=== PATIENT | male | born 2005 | race Caucasian/White ===

== ENCOUNTER 2024-08-05 14:20 | Emergency (ER) | payer OTHER, SELFPAY ==
[2024-08-05 15:19] VITALS: BP 140/77; PULSE 74; RESP 15; TEMP 36.6; O2SAT 100
--- NOTE | 2024-08-05 16:49 | ED_ITS ---
HPI - Abdominal Pain General Chief Complaint: Abdominal Pain <BILL Arana Last Filed: 08/05/24 16:55> Stated Complaint: abdominal pain <BILL Arana Last Filed: 08/05/24 16:55> Time Seen by Provider: 08/05/24 16:49 <BILL Arana Last Filed: 08/05/24 16:55> Focused HPI: Patient is a 19-year-old male who presents the ED with report of upper abdominal pain. Patient reports he developed pain throughout his upper abdomen after eating yesterday. States pain slowly resolved on its own. He ate breakfast this morning without issue. He then had lunch around 1:00 p.m. and developed pain in his upper abdomen immediately afterwards. States he was only able to take 3 bites of his sandwich before the pain began. Pain was much more severe than yesterday which prompted his presentation. Pain is still present currently, but is more mild. He has not taken anything for the pain. He did report episode of diarrhea yesterday which was near black in color. Denies BRBPR. Denies N/V/D, constipation, fever. Denies ETOH use. Denies frequent NSAID use. GENERAL: Well-appearing, well-nourished, and in no acute distress. HEAD: Normocephalic, atraumatic. CHEST: Clear to auscultation. ?No respiratory distress. HEART: Regular rate and rhythm.? ABD: No significant tenderness in abdomen. Normoactive BS. NEURO: ?Alert and oriented x3. Patient screened in triage and initial orders placed.? ?Additional care and disposition to be based upon?diagnostic testing and treatment. <BILL Arana Last Filed: 08/05/24 16:55> Source: patient <BILL Arana Last Filed: 08/05/24 16:55> Mode of arrival: ambulatory <BILL Arana Last Filed: 08/05/24 16:55> Limitations: no limitations <BILL Arana Last Filed: 08/05/24 16:55> History of Present Illness HPI narrative: Patient 19-year-old gentleman presents emergency department chief complaint of epigastric discomfort. The patient has noticed that he has had a burning like sensation that is happened particularly after he eats. The patient states that today was worse he decided to come to the emergency department patient denies ETOH use denies caffeine use <Cy Eduardo MD - Last Filed: 08/05/24 18:01> Related Data Allergies/Adverse Reactions: Allergies Allergy/AdvReac Type Severity Reaction Status Date / Time No Known Allergies Allergy Verified 08/05/24 15:21 <Hyacinth Burns PA-C - Last Filed: 08/05/24 16:55> Review of Systems 2 Review of Systems: A 10 system review of systems was completed on the patient and is negative except for what is stated in the HPI. Nursing and ancillary documentation was reviewed. <Cy Eduardo MD - Last Filed: 08/05/24 18:01> Exam 2 Narrative: GENERAL: Well-appearing, well-nourished, and in no acute distress. HEAD: Normocephalic, atraumatic. EYES: PERRLA and EOMI. ENT: Nares clear, no rhinorrhea or epistaxis. Mucous membranes moist. NECK: Supple. CHEST: Clear to auscultation. No respiratory distress. HEART: Regular rate and rhythm. No murmur heard. Normal peripheral pulses. ABDOMEN: Soft, nontender, nondistended, normal active bowel sounds. EXTREMITIES: Normal range of motion. No edema. SKIN: Warm, dry, no rash. NEURO: No focal deficits. Alert and oriented x3. PSYCH: Normal mood and affect. <Cy Eduardo MD - Last Filed: 08/05/24 18:01> Course Vital Signs Vital signs: Vital Signs Temperature 36.6 C 08/05/24 15:19 Pulse Rate 74 08/05/24 15:19 Respiratory Rate 15 08/05/24 15:19 Blood Pressure 140/77 08/05/24 15:19 Pulse Oximetry 100 08/05/24 15:19 Oxygen Delivery Room Air 08/05/24 15:19 Temperature 36.6 C 08/05/24 15:19 Pulse Rate 74 08/05/24 15:19 Respiratory Rate 15 08/05/24 15:19 Blood Pressure 140/77 08/05/24 15:19 Pulse Oximetry 100 08/05/24 15:19 Oxygen Delivery Room Air 08/05/24 15:19 <Hyacinth Burns PA-C - Last Filed: 08/05/24 16:55> Vital Signs Temperature 36.6 C 08/05/24 15:19 Pulse Rate 74 08/05/24 15:19 Respiratory Rate 15 08/05/24 15:19 Blood Pressure 140/77 08/05/24 15:19 Pulse Oximetry 100 08/05/24 15:19 Oxygen Delivery Room Air 08/05/24 15:19 Temperature 36.6 C 08/05/24 15:19 Pulse Rate 74 08/05/24 15:19 Respiratory Rate 15 08/05/24 15:19 Blood Pressure 140/77 08/05/24 15:19 Pulse Oximetry 100 08/05/24 15:19 Oxygen Delivery Room Air 08/05/24 15:19 <Cy Eduardo MD - Last Filed: 08/05/24 18:01> MDM - Abdominal Pain MDM Narrative Medical decision making narrative: MSE by EDGARDO in triage. Patient declined CT abd/pelvis. <Hyacinth Burns PA-C - Last Filed: 08/05/24 16:55> MSE by EDGARDO in triage. Patient declined CT abd/pelvis. Laboratory studies were obtained on the patient showed normal CBC normal CMP patient is currently asymptomatic. The patient was started on Protonix patient should follow-up with his primary care provider <Cy Eduardo MD - Last Filed: 08/05/24 18:01> Lab Data Result diagrams: 08/05/24 17:11 08/05/24 17:11 <Hyacinth Burns PA-C - Last Filed: 08/05/24 16:55> Labs: Lab Results 08/05/24 Range/Units 17:11 WBC 11.5 H (4.5-10.0) K/mm3 RBC 5.29 (4.6-6.20) M/mm3 Hgb 16.1 (14.0-18.0) g/dL Hct 46.3 (42.0-52.0) % MCV 87.5 (80-100) fl MCH 30.4 (26-34) pg MCHC 34.8 (32-36) g/dl RDW 12.4 (11.5-14.5) % Plt Count 228 (150-375) k/mm3 MPV 9.7 (7.4-10.4) fl Immature Gran % (Auto) 0.3 (0-0.5) % Neut % (Auto) 73.9 H (45.5-73.1) % Lymph % (Auto) 14.5 L (18.3-44.2) % Polk % (Auto) 8.5 (2.6-8.5) % Eos % (Auto) 2.3 (0-4.4) % Baso % (Auto) 0.5 (0.2-1.2) % Lymph # (Auto) 1.67 (0.9-3.2) K/mm3 Polk # (Auto) 1.0 H (0.1-0.6) K/mm3 Eos # (Auto) 0.3 (0-0.3) K/mm3 Baso # (Auto) 0.1 (0.0-0.1) K/mm3 Abs Immat Gran (auto) 0.03 (0.00-0.031) K/mm3 Absolute Neuts (auto) 8.5 H (1.3-6.7) K/mm3 Absolute Nucleated RBC 0.000 (0.0-0.012) K/mm3 Nucleated RBC % 0.0 (0.0-0.2) % Sodium 139 (137-145) mmol/L Potassium 3.9 (3.4-5.0) mmol/L Chloride 102 (98-107) mmol/L Carbon Dioxide 28 (22-30) mmol/L Anion Gap 9 (4-12) mmol/L BUN 12 (9-20) mg/dL Creatinine 0.84 (0.7-1.3) mg/dL Estim Creat Clear Calc 125 ml/min Estimated GFR > 60 (59 - ) Glucose 91 (65-110) mg/dL Calcium 9.5 (8.4-10.2) mg/dL Total Bilirubin 0.7 (0.2-1.3) mg/dL AST 48 (17-59) U/L ALT 40 (6-50) U/L Alkaline Phosphatase 73 (38-126) U/L Total Protein 7.0 (6.3-8.2) g/dL Albumin 4.3 (3.5-5.1) g/dL Lipase 43 (23-300) U/L <Hyacinth Burns PA-C - Last Filed: 08/05/24 16:55> Lab Results 08/05/24 Range/Units 17:11 WBC 11.5 H (4.5-10.0) K/mm3 RBC 5.29 (4.6-6.20) M/mm3 Hgb 16.1 (14.0-18.0) g/dL Hct 46.3 (42.0-52.0) % MCV 87.5 (80-100) fl MCH 30.4 (26-34) pg MCHC 34.8 (32-36) g/dl RDW 12.4 (11.5-14.5) % Plt Count 228 (150-375) k/mm3 MPV 9.7 (7.4-10.4) fl Immature Gran % (Auto) 0.3 (0-0.5) % Neut % (Auto) 73.9 H (45.5-73.1) % Lymph % (Auto) 14.5 L (18.3-44.2) % Polk % (Auto) 8.5 (2.6-8.5) % Eos % (Auto) 2.3 (0-4.4) % Baso % (Auto) 0.5 (0.2-1.2) % Lymph # (Auto) 1.67 (0.9-3.2) K/mm3 Polk # (Auto) 1.0 H (0.1-0.6) K/mm3 Eos # (Auto) 0.3 (0-0.3) K/mm3 Baso # (Auto) 0.1 (0.0-0.1) K/mm3 Abs Immat Gran (auto) 0.03 (0.00-0.031) K/mm3 Absolute Neuts (auto) 8.5 H (1.3-6.7) K/mm3 Absolute Nucleated RBC 0.000 (0.0-0.012) K/mm3 Nucleated RBC % 0.0 (0.0-0.2) % Sodium 139 (137-145) mmol/L Potassium 3.9 (3.4-5.0) mmol/L Chloride 102 (98-107) mmol/L Carbon Dioxide 28 (22-30) mmol/L Anion Gap 9 (4-12) mmol/L BUN 12 (9-20) mg/dL Creatinine 0.84 (0.7-1.3) mg/dL Estim Creat Clear Calc 125 ml/min Estimated GFR > 60 (59 - ) Glucose 91 (65-110) mg/dL Calcium 9.5 (8.4-10.2) mg/dL Total Bilirubin 0.7 (0.2-1.3) mg/dL AST 48 (17-59) U/L ALT 40 (6-50) U/L Alkaline Phosphatase 73 (38-126) U/L Total Protein 7.0 (6.3-8.2) g/dL Albumin 4.3 (3.5-5.1) g/dL Lipase 43 (23-300) U/L <Cy Eduardo MD - Last Filed: 08/05/24 18:01> Discharge Plan Discharge Clinical Impression: Gastroesophageal reflux disease <Hyacinth Burns PA-C - Last Filed: 08/05/24 16:55> Patient Disposition: Home, Self-Care <Hyacinth Burns PA-C - Last Filed: 08/05/24 16:55> Condition: Stable <BILL Arana Last Filed: 08/05/24 16:55> Instructions: Antibiotic Form, GERD (Gastroesophageal Reflux Disease) (ED), Abdominal Pain (ED) <Hyacinth Burns PA-C - Last Filed: 08/05/24 16:55> Additional Instructions: If he did have symptoms he may need further evaluation. <BILL Arana Last Filed: 08/05/24 16:55> Patient Language: [place] <BILL Arana Last Filed: 08/05/24 16:55> Prescriptions: New pantoprazole [Protonix] 40 mg tablet,delayed release (DR/EC) 40 mg PO HS 28 Days Qty: 28 0RF <Hyacinth Burns PA-C - Last Filed: 08/05/24 16:55> Follow-up/Referrals: PHYSICIAN NOT ON STAFF,NONSTAFF [Primary Care Provider] - <Hyacinth Burns PA-C - Last Filed: 08/05/24 16:55> Time of Disposition: 18:01 <Hyacinth Burns PA-C - Last Filed: 08/05/24 16:55> 18:01 <Cy Eduardo MD - Last Filed: 08/05/24 18:01>
[2024-08-05 17:17] LABS: Basophils Absolute Auto 0.1 K/mm3 (0.0-0.1); Basophils Percent Auto 0.5 % (0.2-1.2); Eosinophils Absolute Auto 0.3 K/mm3 (0-0.3); Eosinophils Percent Auto 2.3 % (0-4.4); Hematocrit 46.3 % (42.0-52.0); Hemoglobin 16.1 g/dL (14.0-18.0); Immature Granulocyte Absolute 0.03 K/mm3 (0.00-0.031); Immature Granulocyte Percent A 0.3 % (0-0.5); Lymphocytes Absolute Auto 1.67 K/mm3 (0.9-3.2); Lymphocytes Percent Auto 14.5 % (18.3-44.2); Mean Corpuscular HGB Conc 34.8 g/dl (32-36); Mean Corpuscular Hemoglobin 30.4 pg (26-34); Mean Corpuscular Volume 87.5 fl (80-100); Mean Platelet Volume 9.7 fl (7.4-10.4); Monocytes Percent Auto 8.5 % (2.6-8.5); Neutrophils Absolute Auto 8.5 K/mm3 (1.3-6.7); Neutrophils Percent Auto 73.9 % (45.5-73.1); Platelet Count Result 228 k/mm3 (150-375); Red Blood Count 5.29 M/mm3 (4.6-6.20); Red Cell Distribution Width 12.4 % (11.5-14.5); White Blood Count 11.5 K/mm3 (4.5-10.0)
--- NOTE | 2024-08-05 17:18 | PC.NURSE ---
Pt. reports no pain at all at this time. As a result, pt. does not want any of the ordered medications at this time.
[2024-08-05 17:27] LABS: Alanine Aminotransferase 40 U/L (6-50); Albumin Level 4.3 g/dL (3.5-5.1); Alkaline Phosphatase 73 U/L (38-126); Anion Gap 9 mmol/L (4-12); Aspartate Amino Transferase 48 U/L (17-59); Bilirubin,Total 0.7 mg/dL (0.2-1.3); Blood Urea Nitrogen 12 mg/dL (9-20); Calcium 9.5 mg/dL (8.4-10.2); Carbon Dioxide 28 mmol/L (22-30); Chloride 102 mmol/L (98-107); Estimated CRCL calculation 125 ml/min; Estimated Glomerular Filt Rate > 60; Glucose 91 mg/dL (65-110); Lipase 43 U/L (23-300); Potassium 3.9 mmol/L (3.4-5.0); Sodium 139 mmol/L (137-145)
--- OUTSIDE RECORDS SUMMARY | 2024-08-05 18:15 | XMS_ITS | Continuity of Care Document ---
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 It does not include entries that were removed or entered in error. Problem Status Onset Date Problem Type Date of Resolution Comments Source Left knee pain Active 06/18/2024 Diagnosis 0055 [id number] h [facility] No Known Problems Active Condition 011 A-AF-A NIETO-59th [facility] Encounter for routine child health examination without abnormal findings Active Condition [employer] Encounter for examination for participation in sport Active Condition [employer] attention-deficit hyperactivity disorder Active Condition [employer] Demonstrated Behavior Inactive Condition [employer] Need For Vaccination Against Influenza Inactive Condition [employer] xerosis cutis Inactive Condition [employer] visit for: administrative purpose Inactive Condition [employer] visit for: screening exam Inactive Condition [employer] visit for: 7-10 year visit Inactive Condition [employer] Medications Combined list of outpatient medications from [facility] of [facility] and [facility] facilities.Medications provided include 1) outpatient medications from the last 15 months, and 2) patient-reported medications. Medication Details Route Status Patient Instructions Prescription Expires Prescription Number Last Dispense Date Ordering Provider Order Date Order Qty Source Colace 100 mg oral capsule 1 cap(s), Oral, BID, PRN constipa tion, # 20 cap(s), 0 total refill(s ), Maintena vte, Pharmacy : [facility] Oral (given by mouth) Discont inued 05/02/2023 20.0 0117A-A F-ASU-5 9th [facility] MiraLax oral powder for reconstitut ion See Instruct ions, Dissolve and drink 1 capful (17g) of powder in 4 to 8 ounces of liquid once daily, # 510 g, 0 total refill(s ), Maintena vte, Pharmacy : [facility] Discont inued 05/02/2023 510.0 0117A-A F-ASU-5 9th [facility] [place] oxymetazoli ne 0.05% nasal spray oxymetaz oline 0.05% nasal spray Start Date: 02/07/21 Status: Ordered Ordered No Facilit y Access sodium chloride 0.65% nasal spray sodium chloride 0.65% nasal spray Start Date: 02/10/21 Status: Ordered Ordered No Facilit y Access Allergies, Adverse Reactions, Alerts Combined list of allergies from Department of Defense and Veterans Affairs facilities. It does not include entries that were removed or entered in error. Substance Category Reaction Severity Reaction type Status Date Reported Comments Source No Known Allergies Drug allergy (disorder) active 02/13/2023 DoD Immunizations Combined list of available immunizations from the Department of Defense and Veterans Affairs facilities. Immunization Series Date Given Administered By Site Reaction Lot Number CVX Code Drug Car Repair Supervisor Status Comments Source Influenza, injectable, quadrivalent, preservative free 1 2020 Unknown, Provider [id number] AdorStyleKline (SKB) complet ed Influenza , injectabl e, quadrival ent, preservat keyla free [employer] Human Papillomaviru s 9-valent vaccine 2020 Body, whole [id number] Merck & Company Inc complet ed Human Papilloma virus 9-valent vaccine 01/29/21 Given Ambulat ory Pharmac y meningococcal oligosacchari de (MCV4O) 2020 Body, whole [id number] 136 GlaxoSmithKli ne complet ed meningoco ccal oligosacc haride (MCV4O) 01/29/21 Given Ambulat ory Pharmac y meningococcal oligosacchari de (groups A, C, Y and W-135) diphtheria toxoid conjugate vaccine (MCV4O) 1 2020 MOMO GRADY E [id number] 136 SmithKline (SKB) complet ed meningoco ccal oligosacc haride (groups A, C, Y and W-135) diphtheri a toxoid conjugate vaccine (MCV4O) DoD Human Papillomaviru s 9-valent vaccine 1 2020 MOMO GRADY [id number] Merck (MSD) complet ed Human Papilloma virus 9-valent vaccine DoD COVID Vaccine Pfizer 2020 Kunal mitchell Arm [id number] PFIZER complet ed COVID Vaccine Pfizer 12/06/20 Given Ambulat ory Pharmac y SARS-COV-2 (COVID-19) vaccine, mRNA, spike protein, LNP, preservative free, 30 mcg/0.3mL dose 1 2020 Unknown, Provider [id number] Pfizer, Inc (PFR) complet ed SARS-COV- 2 (COVID-19 ) vaccine, mRNA, spike protein, LNP, preservat keyla free, 30 mcg/0.3mL dose DoD COVID Vaccine Pfizer 2020 [facility] Arm [id number] PFIZER complet ed COVID Vaccine Pfizer 11/15/20 Given Ambulat ory Pharmac y SARS-COV-2 (COVID-19) vaccine, mRNA, spike protein, LNP, preservative free, 30 mcg/0.3mL dose 1 2020 Unknown, Provider [id number] Pfizer, Inc (PFR) complet ed SARS-COV- 2 (COVID-19 ) vaccine, mRNA, spike protein, LNP, preservat keyla free, 30 mcg/0.3mL dose DoD influenza, injectable, quadrivalent- pf 2018 [facility] Arm [id number] 150 Seqirus complet ed influenza , injectabl e, quadrival ent-pf 05/13/19 Given Ambulat ory Pharmac y Influenza, injectable, quadrivalent, preservative free 1 2018 Unknown, Provider [id number] 150 Seqirus (SEQ) complet ed Influenza , injectabl e, quadrival ent, preservat keyla free [employer] influenza virus vaccine, live 2015 [id number] MediImag[employer] Inc [facility] t ed influenza virus vaccine, live 07/13/15 Given Ambulat ory Pharmac y influenza virus vaccine, live, attenuated, for intranasal use 1 2015 Unknown, Provider [id number] [employer]. (MED) complet ed influenza virus vaccine, live, attenuate d, for intranasa l use [employer] tetanus, diphtheria, acellular pertu is [facility] [id number] complet ed tetanus, diphtheri a, acellular pertussis 02/20/15 Given Ambulat ory Pharmac y meningococcal A,C,Y,W-135 (MCV4P) [facility] [id number] sanofi pasteur complet ed meningoco ccal A,C,Y,W-1 35 (MCV4P) 02/20/15 Given Ambulat ory Pharmac y Human Papillomaviru s,quadrivalen t(HPV4) 2014 zzRig Arm [id number] 62 Merck & Company Inc complet ed Human Papilloma virus,nery drivalent (HPV4) 02/20/15 Given Ambulat ory Pharmac y human papilloma virus vaccine, quadrivalent 1 2014 LISA BRANNON [id number] 62 Merck (MSD) complet ed human papilloma virus vaccine, quadrival ent DoD meningococcal polysaccharid e (groups A, C, Y and W-135) diphtheria toxoid conjugate vaccine (MCV4P) 1 2014 LISA BRANNON [id number] 114 Sanofi Pasteur (PMC) complet ed meningoco ccal polysacch aride (groups A, C, Y and W-135) diphtheri a toxoid conjugate vaccine (MCV4P) DoD tetanus toxoid, reduced diphtheria toxoid, and acellular pertu is vaccine, adsorbed 1 2014 LISA BRANNON [id number] 115 [facility] (SKB) complet ed tetanus toxoid, reduced diphtheri a toxoid, and acellular pertussis vaccine, adsorbed DoD influenza virus vaccine, live 2012 [id number] Lyfepointsune Inc comple t ed influenza virus vaccine, live 10/02/12 Given Ambulat ory Pharmac y influenza virus vaccine, live, attenuated, for intranasal use 2 2012 Unknown, Provider [id number] [employer]. (MED) complet ed influenza virus vaccine, live, attenuate d, for intranasa l use DoD influenza, seasonal, injectable 2011 zzLef t Arm [id number] 141 CSL Behring complet ed influenza , seasonal, injectabl e 11/08/11 Given Ambulat ory Pharmac y Influenza, seasonal, injectable 1 2011 Unknown, Provider [id number] 141 [employer] Inc. (CSL) complet ed Influenza , seasonal, injectabl e DoD measles/mumps /rubella virus vaccine 2008 TRANSCR IBED 03 complet ed measles/m umps/rube lla virus vaccine 08/15/08 Given Ambulat ory Pharmac y varicella virus vaccine 2008 TRANSCR IBED 21 complet ed varicella virus vaccine 08/15/08 Given Ambulat ory Pharmac y DTaP 2008 TRANSCR IBED 20 complet ed DTaP 08/15/08 Given Ambulat ory Pharmac y poliovirus vaccine, inactivated 2008 TRANSCR IBED 10 complet ed polioviru s vaccine, inactivat ed 08/15/08 Given Ambulat ory Pharmac y measles, mumps and rubella virus vaccine 2 2008 Unknown, Provider 03 Transcribed (TRS) complet ed measles, mumps and rubella virus vaccine DoD poliovirus vaccine, inactivated 4 2008 Unknown, Provider 10 Transcribed (TRS) complet ed polioviru s vaccine, inactivat ed DoD diphtheria, tetanus toxoids and acellular pertu is vaccine 5 2008 Unknown, Provider 20 Transcribed (TRS) complet ed diphtheri a, tetanus toxoids and acellular pertussis vaccine DoD varicella virus vaccine 2 2008 Unknown, Provider 21 Transcribed (TRS) complet ed varicella virus vaccine DoD Hib, unspecified formulation 2005 TRANSCR IBED 17 complet ed Hib, unspecifi ed formulati on 06/12/06 Given Ambulat ory Pharmac y Hep A, pediatric, unspecified formul 2005 TRANSCR IBED 31 complet ed Hep A, pediatric , unspecifi ed formul 06/12/06 Given Ambulat ory Pharmac y DTaP 2005 TRANSCR IBED 20 complet ed DTaP 06/12/06 Given Ambulat ory Pharmac y Haemophilus influenzae type b vaccine, conjugate unspecified formulation 3 2005 Unknown, Provider 17 Transcribed (TRS) complet ed Haemophil us influenza e type b vaccine, conjugate unspecifi ed formulati on DoD diphtheria, tetanus toxoids and acellular pertu is vaccine 4 2005 Unknown, Provider 20 Transcribed (TRS) complet ed diphtheri a, tetanus toxoids and acellular pertussis vaccine DoD hepatitis A vaccine, pediatric dosage, unspecified formulation 2 2005 Unknown, Provider 31 Transcribed (TRS) complet ed hepatitis A vaccine, pediatric dosage, unspecifi ed formulati on DoD Hep A, pediatric, unspecified formul 2005 TRANSCR IBED 31 complet ed Hep A, pediatric , unspecifi ed formul 11/29/05 Given Ambulat ory Pharmac y DTaP-hepatiti s B and poliovirus vaccine 2005 TRANSCR IBED 110 complet ed DTaP-hepa titis B and polioviru s vaccine 11/29/05 Given Ambulat ory Pharmac y hepatitis A vaccine, pediatric dosage, unspecified formulation 1 2005 Unknown, Provider 31 Transcribed (TRS) complet ed hepatitis A vaccine, pediatric dosage, unspecifi ed formulati on DoD DTaP-hepatiti s B and poliovirus vaccine 3 2005 Unknown, Provider 110 Transcribed (TRS) complet ed DTaP-hepa titis B and polioviru s vaccine DoD measles/mumps /rubella/vari lissette vaccine 2005 TRANSCR IBED 94 complet ed measles/m umps/rube lla/varic alina vaccine 09/11/05 Given Ambulat ory Pharmac y DTaP-hepatiti s B and poliovirus vaccine 2005 TRANSCR IBED 110 complet ed DTaP-hepa titis B and polioviru s vaccine 09/11/05 Given Ambulat ory Pharmac y pneumococcal 7-valent vaccine 2005 TRANSCR IBED 100 complet ed pneumococ diana 7-valent vaccine 09/11/05 Given Ambulat ory Pharmac y Hib, unspecified formulation 2005 TRANSCR IBED 17 complet ed Hib, unspecifi ed formulati on 09/11/05 Given Ambulat ory Pharmac y Haemophilus influenzae type b vaccine, conjugate unspecified formulation 2 2005 Unknown, Provider 17 Transcribed (TRS) complet ed Haemophil us influenza e type b vaccine, conjugate unspecifi ed formulati on DoD measles, mumps, rubella, and varicella virus vaccine 1 2005 Unknown, Provider 94 Transcribed (TRS) complet ed measles, mumps, rubella, and varicella virus vaccine DoD pneumococcal conjugate vaccine, 7 valent 1 2005 Unknown, Provider 100 Transcribed (TRS) complet ed pneumococ diana conjugate vaccine, 7 valent DoD DTaP-hepatiti s B and poliovirus vaccine 2 2005 Unknown, Provider 110 Transcribed (TRS) complet ed DTaP-hepa titis B and polioviru s vaccine DoD DTaP 2003 TRANSCR IBED 20 complet ed DTaP 03 Given Ambulat ory Pharmac y haemophilus b-hepatitis B vaccine 2003 TRANSCR IBED 51 complet ed haemophil us b-hepatit is B vaccine 03 Given Ambulat ory Pharmac y poliovirus vaccine, inactivated 2003 TRANSCR IBED 10 complet ed polioviru s vaccine, inactivat ed 03 Given Ambulat ory Pharmac y poliovirus vaccine, inactivated 3 2003 Unknown, Provider 10 Transcribed (TRS) complet ed polioviru s vaccine, inactivat ed DoD diphtheria, tetanus toxoids and acellular pertu is vaccine 3 2003 Unknown, Provider 20 Transcribed (TRS) complet ed diphtheri a, tetanus toxoids and acellular pertussis vaccine DoD Haemophilus influenzae type b conjugate and Hepatitis B vaccine 1 2003 Unknown, Provider 51 Transcribed (TRS) complet ed Haemophil us influenza e type b conjugate and Hepatitis B vaccine DoD Results Combined list of recent chemistry, hematology and other laboratory results from Department of Defense and Veterans Affairs, ranging from 15 months to all on record, depending upon the facility. Order Name Results Value Reference Range Date Interpretation Specimen Comments Source Miscellan eous Sendouts Calprotecti n, Fecal.LC 5 ug/g 05/13 Result Comment: Concentrati on Interpretat ion Follow-Up < 5 - 50 ug/g Normal None >50 -120 ug/g Borderline Re-evaluate in 4-6 weeks >120 ug/g Abnormal Repeat as clinically indicated Performed At: [address] [id number] Matteo Barry MD Ph:[phone] [id number] 0055A-[address] [place] [address] Hematolog y Smear Review See Comment 05/12 Result Comment: REVIEW INIDICATION : Physician Request PATHOLOGIST REVIEW: Red cell morphologie s unremarkabl e. Hemoglobin mildly elevated, but all other indices are unremarkabl e. Leukocytes show appropriate quantities, differentia l, maturation, and morphologie s. Platelets are unremarkabl e. MANUAL DIFFERENTIA L: 51% Neutrophils 40% Lymphocytes 4% Monocytes 4% Eosinophils 1% Basophils IMPRESSION: Essentially normal peripheral smear. In the absence of systemic illness, elevated hemoglobin may be seen in the contest of aerobic conditionin g in younger individuals . Clinical correlation required. Reviewed by: Carlos Muir Lizbethyuliet, [facility], on 05/15/23 09:43:32 EST 0095A-8 8th [facility] Hematolog y Reticulocyt e % 1.15 % 0.50 - 1.81 05/12 N 0055A-3 [facility] [place] Hematolog y Retic, Abs 0.062 x10^6/mc L 0.026 - 0.946056 05/12 N 0055A-3 [facility] [place] Hematolog y Retic Hemoglobin Equivalent 32.1 pg 28.2 - 36.6 05/12 N 0055A-3 [facility] [place] Hematolog y RBC 5.4 x10^6/mc L 4.0 - 5.6106 05/12 N 0055A-3 [facility] [place] Hematolog y WBC 6.5 x10^3/mc L 4.0 - 11.0103 05/12 N 0055A-3 [facility] [place] Hematolog y RDW 11.6 % 11.0 - 14.9 05/12 N 0055A-3 [facility] [place] Hematolog y RBC 5.4 x10^6/mc L 4.0 - 5.6106 05/12 N 0055A-3 [facility] [place] Hematolog y Platelets 252.0 x10^3/mc L 150.0 - 450.0103 05/12 N 0055A-3 [facility] [place] Hematolog y MPV 9.4 fL 7.4 - 10.4 05/12 N 0055A-3 [facility] [place] Hematolog y MCV 88 fL 80 - 97 05/12 N 0055A-3 [facility] [place] Hematolog y MCHC 34.7 g/dL 33.0 - 36.5 05/12 N 0055A-3 [facility] [place] Hematolog y MCH 31 pg 28 - 33 05/12 N 0055A-3 [facility] [place] Hematolog y Hemoglobin 16.6 g/dL 13.0 - 16.3 05/12 H 0055A-3 [facility] [place] Hematolog y Hematocrit 48 % 40 - 49 05/12 N 0055A-3 75th [facility] [place] Immunolog y/Serolog y Endomysial Ab IgA LC Negative 05/12 0055A-3 75th [facility] [place] Immunolog y/Serolog y tTG IgA.LC <2 U/mL 05/12 Result Comment: Negative 0 - 3 Weak Positive 4 - 10 Positive >10 Tissue Transglutam inase (tTG) has been identified as the endomysial antigen. Studies have demonstr- ated that endomysial IgA antibodies have over 99% specificity for gluten sensitive enteropathy . 0055A-3 75th [facility] [place] Immunolog y/Serolog y IgA, Total.LC 90 mg/dL 05/12 Result Comment: Performed At: [address] [id number] Yusef Mancilla PhD Ph:[phone] 0055A-3 [facility] [place] Hematolog y Neutrophil % Auto 51.7 % 46.0 - 77.0 05/12 N 0055A-3 [facility] [place] Hematolog y Neutro Absolute 3.4 x10^3/mc L 2.0 - 7.0103 05/12 N 0055A-3 [facility] [place] Hematolog y Monocyte % Auto 7 % 1 - 12 05/12 N 0055A-3 [facility] [place] Hematolog y Throckmorton Absolute 0.4 x10^3/mc L 0.2 - 0.8103 05/12 N 0055A-3 [facility] [place] Hematolog y Lymph Absolute 2.4 x10^3/mc L 1.2 - 4.0103 05/12 N 0055A-3 [facility] [place] Hematolog y Lymphocyte % Auto 37.3 % 20.0 - 40.0 05/12 N 0055A-3 [facility] [place] Hematolog y Eosinophil % Auto 3 % 0 - 5 05/12 N 0055A-3 [facility] [place] Hematolog y Eos Absolute 0.2 x10^3/mc L 0.0 - 0.7103 05/12 N 0055A-3 [facility] [place] Hematolog y Basophil % Auto 0.8 % 0.0 - 2.5 05/12 N 0055A-3 75th [facility] [place] Hematolog y Baso Absolute 0.0 x10^3/mc L 0.0 - 0.1103 05/12 N 0055A-3 [facility] [place] Chemistry TIBC LC 270 ug/dL 04/15 0055A-3 75th [facility] [place] Chemistry UIBC LC 173 ug/dL 04/15 0055A-3 75th [facility]- [place] Chemistry Iron Lvl.LC 97 ug/dL 04/15 0055A-3 [facility] [place] Chemistry Iron Sat LC 36 % 04/15 Result Comment: Performed At: [address] [id number] Yusef Mancilla PhD Ph:[phone] 00 - [address] [place] [address]- [place] Chemistry CRP 0.06 mg/dL 0.02 - 0.50 04/15 N 0055A-3 [facility] [place] Hematolog y WBC 6.0 x10^3/mc L 4.0 - 11.0103 04/15 N 0055A-3 [facility] [place] Hematolog y RDW 12.1 % 11.0 - 14.9 04/15 N 0055A-3 75th [facility] [place] Hematolog y RBC 5.4 x10^6/mc L 4.0 - 5.6106 04/15 N 0055A-3 [facility] [place] Hematolog y Platelets 250.0 x10^3/mc L 150.0 - 450.0103 04/15 N 0055A-3 [facility] [place] Hematolog y MPV 9.8 fL 7.4 - 10.4 04/15 N 0055A-3 [facility] [place] Hematolog y MCV 90 fL 80 - 97 04/15 N 0055A-3 75th [facility] [place] Hematolog y MCHC 34.0 g/dL 33.0 - 36.5 04/15 N 0055A-3 [facility] [place] Hematolog y MCH 30 pg 28 - 33 04/15 N 0055A-3 75[facility] [place] Hematolog y Hemoglobin 16.6 g/dL 13.0 - 16.3 04/15 H 0055A-3 [facility] [place] Hematolog y Hematocrit 49 % 40 - 49 04/15 N 0055A-3 75th [facility] Chemistry Ferritin Lvl 49.80 ng/mL 30.00 - 400.00 04/15 N Interpretiv e Data: METHODOLOGY : Testing performed by electrochem iluminescen t immunoassay (ECLIA). 5600[facility] Protein Total 6.9 g/dL 6.4 - 8.3 04/15 N 0055A-3 75th [facility] Chemistry Sodium 142 mmol/L 136 - 145 04/15 N 0055A-3 75th [facility] Chemistry Potassium Lvl 4.1 mmol/L 3.5 - 5.1 04/15 N 0055A-[address] [place] [address] Chemistry Glucose Lvl 85 mg/dL 74 - 99 04/15 N 0055A-[address] [place] [address] Chemistry Creatinine Level 0.90 mg/dL 0.72 - 1.25 04/15 N 0055A-[address] [place] [address] Chemistry CO2 26 mmol/L 22 - 29 04/15 N 0055A-[address] [place] [address] Chemistry Chloride 107 mmol/L 98 - 107 04/15 N 0055A-[address] [place] [address] Chemistry Calcium 9.3 mg/dL 8.4 - 10.2 04/15 N 0055A-[address] [place] [address] Chemistry BUN/Creat Ratio 10 mg/dL 12 - 20 04/15 L 0055A-[address] [place] [address] Chemistry BUN 9 mg/dL 8 - 26 04/15 N 0055A-[address] [place] [address] Chemistry Bilirubin Total 0.6 mg/dL 0.2 - 1.2 04/15 N 0055A-[address] [place] [address] Chemistry AST 27 U/L 5 - 34 04/15 N 0055A-[address] [place] [address] Chemistry ALT 23 U/L 5 - 55 04/15 N 0055A-[address] [place] [address] Chemistry Alk Phos 78 U/L 40 - 150 04/15 N 0055A-[address] [place] [address] Chemistry Albumin 4.30 g/dL 3.50 - 5.20 04/15 N 0055A-[address] [place] [address] Chemistry AGAP 9.00 0.00 - 15.00 04/15 N 0055A-[address] [place] [address] Hematolog y Neutrophil % Auto 52.6 % 46.0 - 77.0 04/15 N 0055A-[address] [place] [address] Hematolog y Neutro Absolute 3.2 x10^3/mc L 2.0 - 7.0103 04/15 N 005-[address] [place] [address] Hematolog y Monocyte % Auto 7 % 1 - 12 04/15 N 0055A-[address] [place] [address] Hematolog y Throckmorton Absolute 0.4 x10^3/mc L 0.2 - 0.8103 04/15 N 005-[address] [place] [address] Hematolog y Lymph Absolute 2.2 x10^3/mc L 1.2 - 4.0103 04/15 N 0055A-[address] [place] [address] Hematolog y Lymphocyte % Auto 37.1 % 20.0 - 40.0 04/15 N 005-[address] [place] [address] Hematolog y Eosinophil % Auto 2 % 0 - 5 04/15 N 0055A-[address] [place] [address] Hematolog y Eos Absolute 0.2 x10^3/mc L 0.0 - 0.7103 04/15 N 005-[address] [place] [address] Hematolog y Basophil % Auto 0.5 % 0.0 - 2.5 04/15 N 0055A-[address] [place] [address] Hematolog y Baso Absolute 0.0 x10^3/mc L 0.0 - 0.1103 04/15 N 0055A-[address] [place] [address] Chemistry eGFR CKD EPI 126 mL/min/1 .73_m2 04/15 Interpretiv e Data: Estimated Glomerular Filtration Rate (eGFR) calculated using the 2020 Chronic Kidney Disease-Epi demiology (CKD-EPI) Collaborati on creatinine equation; units of measure are mL/min/1.73 m2. Results are only valid for adults (>=18 years) whose serum creatinine is in steady state. eGFR calculation s are not valid for patients with acute kidney injury and for patients on dialysis. Creatinine- based estimates of kidney function may also be inaccurate in patients with reduced creatinine generation due to decreased muscle mass (e.g., malnutritio n, severe hypoalbumin emia, sarcopenia, chronic neuromuscul ar disease, amputations , severe heart failure or liver disease) and in patients with increased creatinine generation due to increased muscle mass (e.g., muscle builders, anabolic steroids) or increased dietary intake. CKD is diagnosed based on abnormaliti es of kidney structure or function, present for >3 months, with implication s for health and disease. CKD is classified and staged based on cause, eGFR and albuminuria (quantified as urine albumin to creatinine ratio). An eGFR >60 mL/min/1.73 m2 in the absence of increased urine albumin excretion or structural abnormaliti es does not CKD. eGFR provides only an estimate of measured GFR within +/- 30% for most patients. As mentioned, nutritional status and muscle mass, among many factors, may lead to inaccuracy in the estimate. Consider ordering the creatinine- cystatin C panel if better accuracy is needed for clinical decision-trice guevara. eGFR (mL/min/1.7 3 m2) CKD stage Interpretat ion Normal 60-89 Mild decrease 45-59 Mild to moderate decrease 30-44 Moderate to severe decrease 15-29 Severe decrease <15 Kidney failure 0055A-3 [facility] Vital Signs Combined list of inpatient and outpatient Vital Signs from Department of Defense and Veterans Affairs, ranging from 12 months to all on record, depending upon the facility. Vital Sign Value Date Comments Source Temperature Oral 36.9 Saira 02/12/2023 23:20:00 6870D-KI-IHJ-59th [facility] Systolic Blood Pressure 121 mm[Hg] 02/13/20 23 23:20:00 8496R-DO-FXS-59th [facility] Diastolic Blood Pressure 73 mm[Hg] 023 23:20:00 2596R-RF-AQU-59th [facility] Peripheral Pulse Rate 66 bpm 02/12/2023 23:20:00 0640Q-HS-YEP-59th [facility] Respiratory Rate 20 br/min 02/12/2023 23:20:00 9271R-EI-YJU-59th [facility] Temperature Oral 36.8 Saira 02/26/2023 19:15:00 9907X-XI-VQI-59th NTI-FRPNT-Uyxozhrx Systolic Blood Pressure 107 mm[Hg] 02/27/20 23 19:15:00 6454S-ZS-IUE-59th DQO-HEJFM-Lytmtwcp Diastolic Blood Pressure 69 mm[Hg] 023 19:15:00 3504B-CT-MOX-59th [facility] Peripheral Pulse Rate 80 bpm 02/26/2023 19:15:00 9013I-GN-WKU-59th [facility] Respiratory Rate 16 br/min 02/26/2023 19:15:00 7587E-QA-UWO-59th [facility] Systolic Blood Pressure 118 mm[Hg] 07/04/19 24 19:37:00 0055C-375th [facility] Diastolic Blood Pressure 51 mm[Hg] 024 19:37:00 [facility] Mean Arterial Pressure, Calc 73 mm[Hg] 07/04/2023 19:37:00 [facility] Peripheral Pulse Rate 77 bpm 07/04/2023 19:37:00 [facility] Temperature Temporal Artery 36.9 Saira 02/12/2023 05:06:00 5781O-LK-NQE-59th [facility] Systolic Blood Pressure 152 mm[Hg] 02/13/20 23 05:06:00 2475Y-EN-BDE-59th [facility] Diastolic Blood Pressure 76 mm[Hg] 023 05:06:00 2437L-EC-CEI-59th [facility] Peripheral Pulse Rate 67 bpm 02/12/2023 05:06:00 8231E-RI-JWG-59th [facility] Respiratory Rate 16 br/min 02/12/2023 05:06:00 0872D-XJ-PXV-59th [facility] Systolic Blood Pressure 102 mm[Hg] 04/15/20 23 16:31:00 [facility] Diastolic Blood Pressure 72 mm[Hg] 023 16:31:00 [facility] Mean Arterial Pressure, Calc 82 mm[Hg] 04/15/2023 16:31:00 [facility] Peripheral Pulse Rate 89 bpm 04/15/2023 16:31:00 [facility] Respiratory Rate 20 br/min 04/15/2023 16:31:00 [facility] Temperature Oral 36.8 Saira 04/15/2023 16:31:00 [facility] BP Site Right arm 04/15/2023 16:31:00 [facility] Blood Pressure Manual Automatic 04/15/2023 16:31:00 [facility] Temperature Oral 36.8 Saira 02/13/2023 23:35:00 6708R-UN-DAU-59th WWU-UPERH-Owmaulrb Systolic Blood Pressure 118 mm[Hg] 02/14/20 23 23:35:00 6962F-EH-AJH-59th TDP-GAVNE-Njjvvdkq Diastolic Blood Pressure 73 mm[Hg] 023 23:35:00 4383H-ZE-DAM-59th OPN-GOOVO-Kdvytica Peripheral Pulse Rate 64 bpm 02/13/2023 23:35:00 3166A-OB-UCL-59th ZFB-UDFNG-Vuvcjdka Respiratory Rate 16 br/min 02/13/2023 23:35:00 6221B-QQ-ATM-59th EHT-JYXSE-Vywoxxuk Systolic Blood Pressure 126 mm[Hg] 02/21/20 22 12:14:00 88[facility] MEPS Diastolic Blood Pressure 77 mm[Hg] 022 12:14:00 [facility] [facility] Systolic Blood Pressure 127 mm[Hg] 05/19/20 24 20:19:00 [facility] Diastolic Blood Pressure 63 mm[Hg] 024 20:19:00 [facility] Mean Arterial Pressure, Calc 84 mm[Hg] 05/19/2024 20:19:00 [facility] Peripheral Pulse Rate 77 bpm 05/19/2024 20:19:00 [facility] Respiratory Rate 14 br/min 05/19/2024 20:19:00 [facility] Temperature Oral 36.6 Saira 05/19/2024 20:19:00 [facility] Peripheral Pulse Rate 80 bpm 02/20/2022 16:59:00 8865C[facility] Systolic Blood Pressure 117 mm[Hg] 05/02/20 23 18:15:00 [facility] Diastolic Blood Pressure 73 mm[Hg] 023 18:15:00 [facility] Mean Arterial Pressure, Calc 88 mm[Hg] 05/02/2023 18:15:00 [facility] Peripheral Pulse Rate 71 bpm 05/02/2023 18:15:00 [facility] Respiratory Rate 18 br/min 05/02/2023 18:15:00 [facility] Temperature Oral 36.9 Saira 05/02/2023 18:15:00 [facility] BP Site Right arm 05/02/2023 18:15:00 [facility] Blood Pressure Manual Automatic 05/02/2023 18:15:00 [facility] Temperature Oral 37 Saira 02/12/2023 06:09:00 0218E-BA-HOW-59th MBF-CWPXA-Ndwkgekj Systolic Blood Pressure 152 mm[Hg] 02/13/20 23 06:09:00 5508H-KH-LOK-59th YHM-BTKIB-Lfxhrqun Diastolic Blood Pressure 76 mm[Hg] 023 06:09:00 2122S-QQ-EKN-59th DFV-AYCTH-Jjthkedr Peripheral Pulse Rate 68 bpm 02/12/2023 06:09:00 5994J-VV-OAT-59th LHU-CJOXP-Rjudnfvs Respiratory Rate 16 br/min 02/12/2023 06:09:00 4632T-LE-QNR-59th TOG-JIKYJ-Yoyzkoyx Encounters Combined list of: 1) Encounters from Department of Veterans Affairs facilities going backup to the last 18 months, not all VA inpatient encounters are included; 2) Encounters from the Department of Defense facilities going backup to 280 months. Location Location Details Encounter Type Encounter Number Reason For Visit Attending Provider ADM Date DC Date Status Disposition Source [facility] A) OUTPATIENT [id number] 6 yr YOBANY Rankin 09/17 Released w/o Limitations [facility]( [facility] Peds Team A) [facility] Peds Team D) OUTPATIENT [id number] Notes Entered by: IZZY PALACIOS 11 Mar 2012 1046 ------- ------- ------- ------- -- ROMELIA Deutsch 03/11 Released w/o Limitations [facility]( 99 [facility] Peds Team D) [facility](99 [facility] Peds Team A) TELE CONSULT [id number] Notes Entered by: ME PAT SARAVIA 03 Jul 2012 0745 ------- ------- ------- ------- -- Dry patch CAMPOS Ybarra 07/03 [facility]( [facility] Peds Team A) [facility](99 [facility] Peds Team A) TELE CONSULT [id number] Notes Entered by: JOSE FRANCISCO STEVENS 10 Aug 2012 0740 ------- ------- ------- ------- -- Needs DEYANIRA Cummings 08/10 [facility]( 99[facility] Peds Team A) [facility](ZZ 99MDG Peds Team B-Do Not Use) TELE CONSULT [id number] Notes Entered by: HAN RAHMAN 10 Aug 2012 0823 ------- ------- ------- ------- -- DEYANIRA Beckman 08/10 [facility]( [id number] Peds Team B-Do Not Use) [facility](99 [facility] Peds Team A) OUTPATIENT [id number] dry skin/po ssible derm YOBANY Moraes 09/30 Released w/o Limitations [facility]( 99[facility]G Peds Team A) [facility](99 [facility] Peds Team B) OUTPATIENT [id number] annual physicKAYLA Can 02/04 Released w/o Limitations [facility]( 99[facility] Peds Team B) [facility](99 [facility] Peds Team A) OUTPATIENT [id number] Appt to discuss special ist test results ROMELIA GALE 06/04 Released w/o Limitations [facility]( 99[facility] Peds Team A) [facility](99 [facility] Peds Team A) OUTPATIENT [id number] ADHD YOBANY DACOSTA 06/15 Released w/o Limitations [facility]( 99[facility] Peds Team A) [facility](99 [facility] Peds Team A) TELE CONSULT [id number] Notes Entered by: IZZY PALACIOS 05 Jul 2013 1038 ------- ------- ------- ------- -- Per Olesya was suppose to call Dr. Dacosta today with update on ARBEN Lowry 07/05 [facility]( 99[facility] Peds Team A) [facility](99 [facility] Peds Team A) TELE CONSULT [id number] Notes Entered by: Juju DACOSTA 20 Jul 2013 1106 ------- ------- ------- ------- -- ADHD med refill YOBANY DACOSTA 07/20 [facility]( 99[facility] Peds Team A) [facility](99 [facility] Peds Team A) OUTPATIENT [id number] MEDICAT ION REVIEW YOBANY DACOSTA [place] 08/30 Released w/o Limitations [facility]( 99[facility]G Peds Team A) [facility](99 [facility] Peds Team A) TELE CONSULT [id number] Notes Entered by: PADMAJA MONTALVO 30 Aug 2013 1122 ------- ------- ------- ------- -- Review in HAIMS-N etwork Results -Assess ment Report- Karen bass 2012 YOBANY DACOSTA [place] 08/30 [facility]( 99[facility] Peds Team A) [facility](99 [facility]G Peds Team A) TELE CONSULT [id number] Notes Entered by: PADMAJA MONTALVO 30 Aug 2013 1126 ------- ------- ------- ------- -- Review in HAIMS-N etwork Results -Child Therapy Note-Cartwright 2012 YOBANY DACOSTA [place] 08/30 [facility]( 99[facility] Peds Team A) [facility](99 [facility]G Peds Team B) OUTPATIENT [id number] F/U Medicat ion RANDI TRUJILLO 11/04 Released w/o Limitations [facility]( 99[facility] Peds Team B) [facility](99 [facility] Peds Team B) TELE CONSULT [id number] Notes Entered by: ALEX JARQUIN 09 Dec 2013 0928 ------- ------- ------- ------- -- Medicat ion HAWK YODER 12/09 [facility]( [facility] Peds Team B) [facility](99 [facility] Peds Team B) OUTPATIENT [id number] adhd medicat ion review general concern RANDI Regan 02/14 Released w/o Limitations [facility]( 99MDG Peds Team B) [facility] ) OUTPATIENT [id number] concert a med refill [facility] 07/21 Released w/o Limitations [facility]( [facility]) [facility]) TELE CONSULT [id number] Notes Entered by: LUPE WHITMORE 31 Oct 2014 1016 ------- ------- ------- ------- -- TRIAGE SUSAN SHERMAN 10/31 [facility]( [facility] ) [facility]) OUTPATIENT [id number] SHANNON - MEDICAT ION ISSUE [facility] 11/08 Released w/o Limitations [facility]( [facility]) [facility]) TELE CONSULT [id number] Notes Entered by: Yuliet MORALES 24 Nov 2014 1256 ------- ------- ------- ------- -- TRIAGE WHITNEY GAMINO 11/24 [facility]( [facility]) [facility]) TELE CONSULT [id number] Notes Entered by: [place] MONTEJO 15 Feb 2015 1157 ------- ------- ------- ------- -- MED REFILL WHITNEY GAMINO 02/15 [facility]( [facility]) [facility]) OUTPATIENT [id number] SHANNON., WELL EXAM. [facility] 02/20 Released w/o Limitations [facility]( [facility]) [facility] H [facility]) OUTPATIENT [id number] SHANNON- MEDICAT ION LAURO MACHELLEAUGUSTINE 05/09 Released w/o Limitations [facility]( AM[facility] M[facility]) [facility] H [facility]) OUTPATIENT [id number] SHANNON- FEVER 102 [facility] 06/08 Released w/o Limitations [facility]( [facility] M[facility]) [facility](AM H [facility] ) TELE CONSULT [id number] Notes Entered by: Margy BRANNON 08 Jun 2015 1208 ------- ------- ------- ------- -- MEDICAT ION REFILL AUGUSTINE CARTY 06/08 [facility]( [facility]) [facility](Im munizatio enedina Mathew ) OUTPATIENT [id number] Notes Entered by: Enedina DAVENPORT 13 Jul 2015 0909 ------- ------- ------- ------- -- Immuniz ation BROOKE DAVENPORT 07/13 Released w/o Limitations [facility]( Immuniz ation Patricia ) [facility] ) OUTPATIENT [id number] SHANNON-ad hd meds [facility] 09/20 Released w/o Limitations [facility]( [facility] M[facility] ) [facility] ) OUTPATIENT [id number] SHANNON-ME DICATIO N [facility] 12/07 Released w/o Limitations [facility]( [facility] M[facility] ) [facility] ) OUTPATIENT [id number] Bas: adhd/me dicatio n ( resched uled) AUGUSTINE CARTY 03/18 Released w/o Limitations [facility]( [facility]) [facility] ) OUTPATIENT [id number] SHANNON/AD HD FOLLOW UP [facility] 08/20 Released w/o Limitations [facility]( [facility] ) [facility] H [facility] ) OUTPATIENT [id number] Basy-ph hipolito ORTEGA JESSE 09/26 Released w/o Limitations [facility]( [facility] M[facility] ) [place] [place] [address](Formerly [facility] kland_[facility] [place] _Team E) TELE CONSULT [id number] Notes Entered by: ZE MCLEAN 14 Dec 2018 0812 ------- ------- ------- ------- -- FCR/WESTON CK INGROWN TOENAIL BEST CONTACT # [id number] SONY/RADHA SAMPSON 12/14 Referred for Appointment [facility] [place] [address]([place] _FMC_Te am E) [facility] [place] [address](Formerly [facility] kland_[facility] [place] _Team E) OUTPATIENT [id number] right great toe ingrown nail KENNEDY HAMMER 12/21 Released w/o Limitations [facility] [place] [address]([place] _FMC_Te am E) [facility] [place] [address]([place]_[facility] [place] _Team E) OUTPATIENT [id number] [id number] DIANNE BROWNLEE 02/20 Released w/o Limitations [facility] [place] [address]([place] _FMC_Te am E) [facility] [place] [address](Formerly [facility] kland_[facility] [place] [place] _Team E) TELE CONSULT [id number] Notes Entered by: BULL PAIZ 02 Jan 2021 1044 ------- ------- ------- ------- -- FCR/WESTON CK/REF TO ENT FOR NOSE BLEEDS/ / RV BING WILDE 01/02 Other Not Elsewhere Classified [facility] [place] [address]([place] _FMC_Te am E) [facility] [place] [address]([place]_FMC _Team E) OUTPATIENT [id number] wellnes s exam and freq noseble KENNEDY Niño 01/19 Released w/o Limitations [facility] [place] [address]([place] _FMC_Te am E) [facility] [place] [address]([place]_[facility]MC _Team E) OUTPATIENT [id number] sports physicBEENA Neff 01/26 Released w/o Limitations [facility] [place] [address]([place] _FMC_Te am E) [facility] [place] [address](All ergy, [facility]) OUTPATIENT [id number] Notes Entered by: MOMO RGADY 29 Jan 2021 1037 ------- ------- ------- ------- -- GIUSEPPE Marcum 01/29 Released w/o Limitations [facility] [place] [address](A llergy, [facility]) [facility] [place] [address]([place]_FMC _Team E) OUTPATIENT [id number] KENNEDY Braun 01/29 Released w/o Limitations [facility] [place] [address]([place] _FMC_Te am E) [facility] [place] [address]([place]_[facility]MC _Team E) OUTPATIENT [id number] LAB RESULTS / REFERRA L RUMA MOREON 02/07 Released w/o Limitations [facility] [place] [address]([place] _FMC_Te am E) [facility] [place] [address]([place] laryngolo gy (ENT) [facility]) OUTPATIENT [id number] F2F Epistax is SHIRA DANIELLE 03/14 Released w/o Limitations [facility] [place] [address](O tolaryn gology (ENT) [facility]) [facility] [place] [address]([place]_FMC _Team E) OUTPATIENT [id number] [phone] SORE THROAT BEENA MOLINA 04/10 Released w/o Limitations [facility] [place] [address]([place] _FMC_Te am E) [facility] [place] [address](Khoi laryngolo gy (ENT) [facility]) OUTPATIENT [id number] F/1 month follow up per SHIRA Kohler 04/12 Released w/o Limitations [facility] [place] [address](O tolaryn gology (ENT) [facility]) [facility] [place] [address]([place]_FMC _Team E) OUTPATIENT [id number] JOSE DAVIDT CURT GORE CHRISTIANE Juju 05/31 Released w/o Limitations [facility] [place] [address]([place] _FMC_Te am E) [facility] Outside Documentat ion Only [id number] 05/18 Discharge Disposition: Home or Self Care 0055A-3 [facility] [place] [facility] Between Visit [id number] 06/17 Discharge Disposition: Home or Self Care 0055C-[facility] [place] [facility] Clinic [id number] Pain in left knee LIDYA PENA TLER 06/18 Discharge Disposition: Home or Self Care 0055C-[facility] [facility] Between Visit [id number] 07/15 Discharge Disposition: Home or Self Care 0055C-[facility] [facility] Outpatient [id number] LIDYA PENA TLER 07/30 Discharge Disposition: Home or Self Care 0055A-[address] [place] [address]- [place] Procedures Combined list of: 1) Procedures from Department of Veterans Affairs facilities going back up to thelast 18 months, not all VA non-surgical procedures are included; 2) All procedures from the Department of Defense facilities. Procedure Procedure Type Code Date Perfomer Comments Sourc e No data available for this section Ambulato ry Pharmacy Influenza Virus Vaccine Intranasal Live Attenuated Influenza Virus Vaccine Intranasal Live Attenuated 48162 2015 BROOKE DAVENPORT Influenza, Live, Intranasal; Series #: 1; .2 mL; IN; Intranasal; Mfg: [employer]; Lot: [id number]; VIS given (Marcell: 02/03/2015). Patient received 0.2ml Flumist administered intranasal. See Immunization Module. Parent advised to wait in clinic area for 15 minutes following administration. Parent / Guardian was offered VIS and voiced understanding of s/s of adverse/allergi c reaction. DoD Immunization Admin By Intranasal / Oral Route One Vaccine Immunization Admin By Intranasal / Oral Route One Vaccine 99305 2015 BROOKE DAVENPORT [employer] Human Papilloma Virus Vaccine, Quadrivalent Human Papilloma Virus Vaccine, Quadrivalent 34284 2014 JESSE ORTEGA HPV, quadrivalent; Series #: 1; .5 mL; IM; Right Arm; Mfg: Applits; Lot: [id number]; VIS given (Marcell: 11/13/12). [facility] Meningococcal (A, C, Y, W-135) Oligosacch Diphtheria Toxoid Conj Vacc 2014 JESSE ORTEGA Meningococcal MCV4P; Series #: 1; .5 mL; IM; Right Arm; Mfg: Sanofi Pasteur; Lot: [id number]; VIS given (Marcell: 04/12/11). [facility] Tdap Vaccine Tdap Vaccine 79234 2014 JESSE ORTEGA Tdap; Series #: 1; .5 mL; IM; Left Arm; Mfg: [employer]; Lot: [id number]; VIS given (Marcell: 08/23/14). DoD Immunization Administration By Injection, One Vaccine Immunization Administration By Injection, One Vaccine 50236 2014 JESSE ORTEGA DoD Immunization Administration By Injection, Each Additional Vaccine Immunization Administration By Injection, Each Additional Vaccine 54173 2014 JESSE ORTEGA [facility] Visual Function Screening Visual Function Screening 79603 2014 SHANNONJESSE [facility] Non-Physician Phone Call To Pt/Provider Intermed (11-20 min) Non-Physician Phone Call To Pt/Provider Intermed (11-20 min) 14124 2014 WHITNEY GAMINO [facility] Non-Physician Phone Call To Pt/Provider Intermed (11-20 min) Non-Physician Phone Call To Pt/Provider Intermed (11-20 min) 90471 2014 SUSAN SHERMAN [facility] Immunization Admin Intranasal / Oral Each Additional Vaccine Immunization Admin Intranasal / Oral Each Additional Vaccine 89173 2012 YOBANY DACOSTA [facility] Waiver services; not otherwise specified (NOS) DIANNE BROWNLEE DoD Meningococcal (A, C, Y, W-135) Oligosacch Diphtheria Toxoid Conj Vacc Meningococcal (A, C, Y, W-135) Oligosacch Diphtheria Toxoid Conj Vacc 04015 MOMO GRADY E Meningococcal MCV4O (Menveo); Series #: 1; 0.5 mL; IM; Unknown; Mfg: [employer]; Lot: [id number]; VIS given (Marcell: 02/11/2019). [facility] Human Papilloma Virus Vaccine, Nonavalent Human Papilloma Virus Vaccine, Nonavalent 24490 MOMO GRADY E HPV9; Series #: 1; 0.5 mL; IM; Unknown; Mfg: Applits; Lot: [id number]; VIS given (Marcell: 04/28/2019). [facility] Immunization Administration By Injection, One Vaccine Immunization Administration By Injection, One Vaccine 21837 TRINITY GRADYA E [facility] Immunization Administration By Injection, Each Additional Vaccine Immunization Administration By Injection, Each Additional Vaccine 67145 TRINITY GRADYA E [facility] Nasal Hemorrhage Control Anterior Simple Nasal Hemorrhage Control Anterior Simple 33447 SHIRA DANIELLE [facility] INFLUENZA VIRUS VACCINE, TRIVALENT, LIVE (LAIV3), FOR INTRANASAL USE 2015 [facility] VIS FUNCT SCREEN,AUTOMAT/SE UT-AUTOMAT BILAT QUANT DETERM VISUAL ACUITY,OCULAR ALIGN,COLOR VISION,PSEUDOISOC HROMAT PLATES,& FIELD VIS (OCTOBER INC ALL/SOME SCRN DETERM FOR CONTRAST SENSITIV,VIS UND GLARE) 2014 DoD TELE ASSESS & MGT SRV PROV QUAL NONPHYS HLTH CARE PRO TO EST PAT,PARENT,GUARD NOT ORIG REL ASSESS & MGT SRV PROV W/IN PREV 7 DAYS NOR LEAD ASSESS & MGT SRV/PX W/IN NXT 24H/SOON APT; 11-20 MIN MED DIS 2014 DoD TELE ASSESS & MGT SRV PROV QUAL NONPHYS HLTH CARE PRO TO EST PAT,PARENT,GUARD NOT ORIG REL ASSESS & MGT SRV PROV W/IN PREV 7 DAYS NOR LEAD ASSESS & MGT SRV/PX W/IN NXT 24H/SOON APT; 11-20 MIN MED DIS 2014 DoD WAIVER SERVICES; NOT OTHERWISE SPECIFIED (NOS) 2020 [facility] CONTROL NASAL HEMORRHAGE, ANTERIOR, SIMPLE (LIMITED CAUTERY AND/OR PACKING) ANY METHOD 2020 [facility] WAIVER SERVICES; NOT OTHERWISE SPECIFIED (NOS) 2020 [facility]D IMMUNIZATION ADMINISTRATION (INCLUDES PERCUTANEOUS, INTRADERMAL, SUBCUTANEOUS, OR INTRAMUSCULAR INJECTIONS); EACH ADDITIONAL VACCINE (SINGLE OR COMBINATION VACCINE/TOXOID) 2020 [facility]; NOT OTHERWISE SPECIFIED (NOS) 2020 [facility] WAIVER SERVICES; NOT OTHERWISE SPECIFIED (NOS) 2019 [facility] IMMUNIZATION ADMINISTRATION BY INTRANASAL OR ORAL ROUTE; EACH ADDITIONAL VACCINE (SINGLE OR COMBINATION VACCINE/TOXOID) (LIST SEPARATELY IN ADDITION TO CODE FOR PRIMARY PROCEDURE) 2012 [facility] INTRODUCTION OF NEEDLE OR INTRACATHETER, VEIN 2011 DoD Social History Combined list of available smoking, tobacco, and other social history from Department of Defense and Veterans Affairs facilities. Social History Type Response Date Comment Sour e Male 04/25/2021 Ambulatory Pha rmacy Tobacco Frequent/Daily exposure to secondhand smoke in indoor/confined spaces No. Never-cigarette user Cigarette use:. Never-other tobacco user (not cigarettes) Other Tobacco use:. Ambulatory Pharmacy Sexual Orientation Ambula tory Pharmacy Gender identity Ambulator y Pharmacy This section is an empty social history section. [facility] Assessment and Plan Combined list of future care activities from Department of Defense and Veterans Affairs facilities (e.g., assessment and plan notes, appointments, orders, and referrals). Additional future care activities may be listed in the Plan of Care section. Result Assessment and Plan Date Source Assessment and Plan Extracted from:Title : [facility] - [facility] - Knee Pain F/u Author: LIDYA WISEMAN PA Date: 06/18/24 1. L eft knee pain V erified full name and . 19-year-old male presented clinic for follow-up f or left knee pain. W as evaluated in clinic a pproximately 2 weeks ago a nd advised to follow-up if k nee pain was worsening or not improving w ithin 2 weeks. Patient initially made this appointment to discuss?possibly obtaining an x-ray due to n o improvement of symptoms but e xpressed during this appointment that his knee pain has improved over the past couple of days. S tates he is able to bend his knee with minimal p ain and he feels that his knee is s teadily improving. -Came to shared decision to continue monitoring me over the next couple of weeks. -If knee continues to improve he can follow-up as n eeded. H owever, if knee pain does?worsen, consider x-ray. Patient verbalized understanding and agrees w ith plan. All questions were answered. [facility] [place] Extracted from:Title: 0055 [facility] - Left Knee Pain Author: LIDYA WISEMAN PA Date: 05/19/24 1. L eft knee pain 19 y/o M p resents to clinic with acute L k nee pain. States he's been suffering with Left knee pain for the past 2-3 weeks. Unsure of cause but states he does exercise lower legs often and has recently began to jog consistently for the past 3-4 months. Localizes pain to popliteal fossa and radiates to anterior knee when bending. Worse when bending knee or ascending/descending stairs. Denies any recent injury or trauma. Pt has tx'd self with motrin and reducing physical activity which has improved symptoms. Discussed the following: PLAN 1. 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 2. Advised pt to continue RICE therapy and taking motrin prn for pain. 3. Referral placed to PT for consult. 4. I f no improvement within 1-2 weeks, advised to schedul virtual appointment to discuss p ossible ordering x-ray/PT consult f or further assessment. 5. Any indications of buckling, instability, or locking, RTC jona. PVUAG with plan. Maj Margy Wiseman PA-C [facility] [address] [facility] [place] Extracted from:Title: Office Clinic Note [facility] - GI f/u Author: BERNARDA REID PA-C Date: 07/04/23 1. F ollow-up Patient presents for follow-up from GI. He says he was seen by GI specialist who had done a colonoscopy and also given him a clean bill of health. He says his issues have resolved and he is having normal bowel movements now. I recommend that he follow up again with our clinic as needed if any of the symptoms return and is also encouraged to schedule a follow-up appointment with the GI clinic where he is was seen as well. Patient consented to physical exam . He was chaperoned by Lenora Cullen. B sissy chemistry abnormal Encouraged the patient to reach out to the [employer] referrals department and inquire again in regard to his hematology referral that was placed. I have print off his lab work for him to take with him when he sees his core carrier. I have also encouraged him to reach out to us again if there is any additional information that he needs for us to give him prior to this appointment. Extracted from:Title: Office Clinic Note -lab review - [facility] Author: BERNARDA REID PA-C Date: 05/28/23 1. A bnormal finding of blood chemistry, unspecified Order: Referral Request 2.0 Details: 1 07/27/2022 16:09 BATTERY CHARGER TESTER, Medical Service Hematology, 18 y.o M with repeated high hemoglobin . [phone] . Please evaluate and treat . Thank you ., Evaluate and Treat, Blood chemistry abnormal 18 y.o M with repeated high hemoglobin . [phone] Extracted from:Title: Office Clinic Note irregular stools Author: BERNARDA REID PA-C Date: 05/02/23 1. I rregular bowel habits CBC w/ Diff Referral Request 2.0 Recommend follow up with GI for colonoscopy in regard to irregular bowel habits and blood in stool over course of last 3 months. -recommend additional lab work within 1 week. -Patient had high hemoglobin - recommend repeat labs and additional lab work at this time. - Juliann additionally consult hematology . -For reoccurring blood in stool , or any worsening abdominal pain patient should contact 911 , or have test car driver escort him to a local ER . -Patient consented to physical exam . He was chaperoned by Lenora Suresh. Calprotectin Fecal [id number] CBC w/ Diff Celiac Disease Panel [id number] Referral Request 2.0 Ordered: Calprotectin Fecal [id number] CBC w/ Diff Celiac Disease Panel [id number] Referral Request 2.0 2. B lood chemistry abnormal Pathologist Smear Review Retic Count Ordered: Pathologist Smear Review Retic Count Extracted from:Title: 0055 [facility] Chronic Diarrhea Author: DORA WALL PA Date: 04/15/23 1. D iarrhea, unspecified 17y/o with hx of few months constipation now presents with 2 months of consistent diarrhea. Pt had an ED visit after not b eing able to d efecate for 5d where he had a CT a nd lab work done. CT did not find blockage but he was given an enema to reduce pain/pressure that flushed him out. Not P t states he has only loose stools. They are n on-bloody s tool but sometimes blood with wiping; He will occasionally feels sharp pain in lower a bd or rectum and is usually relieved with voiding. He feels he goes less frequently than before. Sometimes has d iscomfort when going to the restroom. Will typically defecate o nce a day sometime twice. States N o change in diet. States No increase in anxiety. Denies N/V, fevers/chills, recent exposure to raw foods. -Pt denied needing any medications at this time -Order stool culture -Order labs (CBC, Iron/Ferritin, CMP, CRP) -Discussed diet with fiber and starches; adequate hydration -Discussed benefit of logging potential triggers -f/u in 2-4weeks for results -Consider GI referral f or ileocolonoscopy or CT enterography if labs are suggesting inflammatory cause Ordered: C-Reactive Protein CBC w/ Diff Comprehensive Metabolic Panel Ferritin Iron and TIBC [id number] Stool Culture Extracted from:Title: Education Note Author: JAMIE CONTRERAS Date: 02/20/22 Patient Education Materials Follows: 08/06/2024 [id number] [facility] Assessment and Plan Extracted from:Title : [facility]IRT - 0055 [facility] - Knee Pain F/u Author: LIDYA WISEMAN PA Date: 06/18/24 1. L eft knee pain V erified full name and . 19-year-old male presented clinic for follow-up f or left knee pain. W as evaluated in clinic a pproximately 2 weeks ago a nd advised to follow-up if k nee pain was worsening or not improving w ithin 2 weeks. Patient initially made this appointment to discuss?possibly obtaining an x-ray due to n o improvement of symptoms but e xpressed during this appointment that his knee pain has improved over the past couple of days. S tates he is able to bend his knee with minimal p ain and he feels that his knee is s teadily improving. -Came to shared decision to continue monitoring me over the next couple of weeks. -If knee continues to improve he can follow-up as n eeded. H owever, if knee pain does?worsen, consider x-ray. Patient verbalized understanding and agrees w ith plan. All questions were answered. MEL[facility] [address] [place] Extracted from:Title: 0055 [facility] - Left Knee Pain Author: LIDYA WISEMAN PA Date: 05/19/24 1. L eft knee pain 19 y/o M p resents to clinic with acute L k nee pain. States he's been suffering with Left knee pain for the past 2-3 weeks. Unsure of cause but states he does exercise lower legs often and has recently began to jog consistently for the past 3-4 months. Localizes pain to popliteal fossa and radiates to anterior knee when bending. Worse when bending knee or ascending/descending stairs. Denies any recent injury or trauma. Pt has tx'd self with motrin and reducing physical activity which has improved symptoms. Discussed the following: PLAN 1. 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 2. Advised pt to continue RICE therapy and taking motrin prn for pain. 3. Referral placed to PT for consult. 4. I f no improvement within 1-2 weeks, advised to sched virtual appointment to discuss p ossible ordering x-ray/PT consult f or further assessment. 5. Any indications of buckling, instability, or locking, RTC jona. PVUAG with plan. Maj Margy Wiseman PA-C [facility] [address] [facility] [place] Extracted from:Title: Office Clinic Note [facility] - GI f/u Author: BERNARDA REID PA-C Date: 07/04/23 1. F ollow-up Patient presents for follow-up from GI. He says he was seen by GI specialist who had done a colonoscopy and also given him a clean bill of health. He says his issues have resolved and he is having normal bowel movements now. I recommend that he follow up again with our clinic as needed if any of the symptoms return and is also encouraged to schedule a follow-up appointment with the GI clinic where he is was seen as well. Patient consented to physical exam . He was chaperoned by Lenora Carrero B sissy chemistry abnormal Encouraged the patient to reach out to the [employer] referrals department and inquire again in regard to his hematology referral that was placed. I have print off his lab work for him to take with him when he sees his core carrier. I have also encouraged him to reach out to us again if there is any additional information that he needs for us to give him prior to this appointment. Extracted from:Title: Office Clinic Note -lab review - [facility] Author: BERNARDA REID PA-C Date: 05/28/23 1. A bnormal finding of blood chemistry, unspecified Order: Referral Request 2.0 Details: 1 07/27/2022 16:09 BATTERY CHARGER TESTER, Medical Service Hematology, 18 y.o M with repeated high hemoglobin . [phone] . Please evaluate and treat . Thank you ., Evaluate and Treat, Blood chemistry abnormal 18 y.o M with repeated high hemoglobin . [phone] Extracted from:Title: Office Clinic Note irregular stools Author: BERNARDA REID PA-C Date: 05/02/23 1. I rregular bowel habits CBC w/ Diff Referral Request 2.0 Recommend follow up with GI for colonoscopy in regard to irregular bowel habits and blood in stool over course of last 3 months. -recommend additional lab work within 1 week. -Patient had high hemoglobin - recommend repeat labs and additional lab work at this time. - Juliann additionally consult hematology . -For reoccurring blood in stool , or any worsening abdominal pain patient should contact 911 , or have test car driver escort him to a local ER . -Patient consented to physical exam . He was chaperoned by Lenora Suresh. Calprotectin Fecal [id number] CBC w/ Diff Celiac Disease Panel [id number] Referral Request 2.0 Ordered: Calprotectin Fecal [id number] CBC w/ Diff Celiac Disease Panel [id number] Referral Request 2.0 2. B lood chemistry abnormal Pathologist Smear Review Retic Count Ordered: Pathologist Smear Review Retic Count Extracted from:Title: 0055 [facility]CC Chronic Diarrhea Author: DORA WALL PA Date: 04/15/23 1. D iarrhea, unspecified 17y/o with hx of few months constipation now presents with 2 months of consistent diarrhea. Pt had an ED visit after not b noheliang able to d efecate for 5d where he had a CT a nd lab work done. CT did not find blockage but he was given an enema to reduce pain/pressure that flushed him out. Not P t states he has only loose stools. They are n on-bloody s tool but sometimes blood with wiping; He will occasionally feels sharp pain in lower a bd or rectum and is usually relieved with voiding. He feels he goes less frequently than before. Sometimes has d iscomfort when going to the restroom. Will typically defecate o nce a day sometime twice. States N o change in diet. States No increase in anxiety. Denies N/V, fevers/chills, recent exposure to raw foods. -Pt denied needing any medications at this time -Order stool culture -Order labs (CBC, Iron/Ferritin, CMP, CRP) -Discussed diet with fiber and starches; adequate hydration -Discussed benefit of logging potential triggers -f/u in 2-4weeks for results -Consider GI referral f or ileocolonoscopy or CT enterography if labs are suggesting inflammatory cause Ordered: C-Reactive Protein CBC w/ Diff Comprehensive Metabolic Panel Ferritin Iron and TIBC [id number] Stool Culture Extracted from:Title: Education Note Author: JAMIE CONTRERAS Date: 02/20/22 Patient Education Materials Follows: 08/06/2024 [id number] Functional Status Combined list of recent functional and cognitive assessments recorded at [facility] [employer] [facility] Functional [place] Measurement (FIM) Scale: 1 = Total Assistance (Subject = 0% +), 2 = Maximal Assistance (Subject = 25% +), 3 = Moderate Assistance (Subject = 50% +), 4 = Minimal Assistance (Subject = 75% +), 5 = Supervision, 6 = Modified [place] (Device), 7 = Complete [place] (Timely, Safely). Assessment Date/Time Source Assessment Type Assessment Skill Assessment Score Assessment Details No data available for this section
--- OUTSIDE RECORDS SUMMARY | 2024-08-05 18:15 | XMS_ITS | Clinical Summary ---
Author Organization [facility] [address] Address [address] [place] [id number] Care Team Providers Care Housekeeping Manager Name Role Phone Unknown, Notinfile Primary Care Provider Unavail able Allergies No known active allergies Medications No known medications Active Problems No known active problems Family History Medical History Relation Name Comments Diabetes Maternal Grandfather Hypertension Maternal Grandfather Relation Name Status Comments Maternal Grandfather Social History Tobacco Use Types Packs/Day Years Used Date Smoking Tobacco: Never Smokeless Tobacco: Never Tobacco Cessation:Counseling Given: Not Answered Personal Safety Answer Date Recorded Getting School Help Needed Not on file 09/13 Sex and Gender Information Value Date Recorded Sex Assigned at Not on file Legal Sex Male 10:19 AM CDT Gender Identity Male 04/19/2023 7:43 AM CDT Sexual Orientation Not on file Obstetrics History Last Filed Vital Signs Vital Sign Reading Time Taken Comments Blood Pressure 118/70 04/19/2023 8:57 AM CDT Pulse 70 04/19/2023 8:57 AM CDT Temperature 36.9 C (98.5 F) 04/19/2023 8:57 AM CDT Respiratory Rate 18 04/19/2023 8:57 AM CDT Oxygen Saturation 99% 04/19/2023 8:57 AM CDT Inhaled Oxygen Concentration - - Weight 68.6 kg (151 lb 3.2 oz) 04/19/2023 8:57 A M CDT Height 175.3 cm (5' 9 ) 04/19/2023 8:57 AM CDT Body Mass Index 22.33 04/19/2023 8:57 AM CDT Plan of Treatment Health Maintenance Due Date Last Done Comments Depression Screening 2003 Hepatitis C Screening 2003 HPV Vaccines (2 - Male 2-dos e series) 08/23/2015 02/20/2015 Meningococcal B Vaccine (1 o f 2 - Patient Seeks Protection) 2019 Regular Well Visit/Exam 18-64 2021 Covid-19 Vaccine (3 - 2023-2 5 season) 2024 12/06/2020, 11/15/2020 Influenza Vaccine (#1) 2024 , 05/13/2019, 07/13/2015, Additional history exists DTaP/Tdap/Td Vaccine (7 - Td or Tdap) 02/20/2025 02/20/2015, 08/15/2008, 06/12/2006, Additional history exists Pneumococcal vaccine <65 Completed 09/11/2005 Varicella Vaccines Completed 08/15/2008, 09/11/2005 Meningococcal Vaccine Completed 01/29/2021, 015 Care Teams Housekeeping Manager Relationship Specialty Start Date End Date Unknown, Notinfile PCP - General 04/18/23
--- OUTSIDE RECORDS SUMMARY | 2024-08-05 18:15 | XMS_ITS | Referral Summary ---
Author Organization [facility] [address] Address [address] [place] [id number] Care Team Providers Care Dentistry Professor Name Role Phone Unknown, Notinfkylie Primary Care Provider Unavail able Allergies No known active allergies Medications No known medications Active Problems No known active problems Social History Tobacco Use Types Packs/Day Years [...] AM CDT Sexual Orientation Not on file Last Filed Vital Signs Vital Sign Reading [...] 04/19/2023 8:57 AM CDT Plan of Treatment Not on file Care Teams Dentistry Professor Relationship Specialty Start Date End Date Unknown, Esther PCP - General 04/18/23
[2024-08-05 18:21] VITALS: BP 127/85; PULSE 64; RESP 16; O2SAT 100
== END 2024-08-05 18:23 | disposition home or self-care (01) ==
LOC: ANHED 18:13
PROVIDERS: Physician Assistant; Emergency Provider Emergency Medicine
DX: K21.9 Gastro-esophageal reflux disease without esophagitis (principal)
CPT/HCPCS: 36415; 80053; 83690; 85025; 99283; A9270

== ENCOUNTER 2025-03-29 22:10 | Emergency (ER) | payer OTHER, SELFPAY ==
--- NOTE | ~2025-03-29 | CT_ITS ---
CT HEAD NON-CONTRAST Clinical History: headache Comparison: None Technique: Unenhanced axial images skull base to vertex Coronal, sagittal reformats CT images acquired with automatic exposure control for dose reduction DLP: 605 mGy-cm Findings: Sulci, ventricles: Unremarkable. No intracerebral hemorrhage. No evidence acute territorial infarct. No mass effect, midline shift. Barely low-lying cerebellar tonsils. Bony calvarium intact. Visualized paranasal sinuses: Clear. Mastoid air cells: Clear. IMPRESSION: 1. No acute intracranial findings. Reviewed, dictated and finalized at location R.
[2025-03-29 22:20] VITALS: BP 151/75; PULSE 68; RESP 18; TEMP 36.9; O2SAT 98
[2025-03-30 00:29] VITALS: BP 130/62; PULSE 73; RESP 18; O2SAT 97
[2025-03-30 02:24] VITALS: BP 116/54; PULSE 71; RESP 18; O2SAT 97
--- NOTE | 2025-03-30 02:29 | ED_ITS ---
HPI - Headache General Chief Complaint: Upper Respiratory Infection Stated Complaint: sinus pressure Time Seen by Provider: 03/30/25 00:25 History of Present Illness HPI Narrative: 19-year-old male presenting to the emergency department with headache. He states he has a headache whenever he bends forward or sneezes. Endorses headaches that worsened with position but not presently having any headache. No vision changes, nausea, vomiting. States he had some slight congestion but de nies any congestion presently or any other symptoms such as fever, chills, neck pain or stiffness. No traumatic injuries. He notices most often when he bends over to pick something upper type issue he gets the headache on the right-sided posterior occipital region going down his neck. Was otherwise in his normal state of health. Symptoms going on for a week. Related Data Allergies Allergy/AdvReac Type Severity Reaction Status Date / Time No Known Allergies Allergy Verified 08/05/24 15:21 Course Vital Signs Vital signs: Vital Signs Temperature 36.9 C 03/29/25 22:20 Pulse Rate 68 03/29/25 22:20 Respiratory Rate 18 03/29/25 22:20 Blood Pressure 151/75 H 03/29/25 22:20 Pulse Oximetry 98 03/29/25 22:20 Oxygen Delivery Room Air 03/29/25 22:20 Temperature 36.9 C 03/29/25 22:20 Pulse Rate 75 03/30/25 02:40 Respiratory Rate 22 H 03/30/25 02:40 Blood Pressure 110/63 03/30/25 02:40 Pulse Oximetry 98 03/30/25 02:40 Oxygen Delivery Room Air 03/30/25 00:29 MDM - Headache MDM Narrative Medical decision making narrative: 19-year-old male presenting to the emergency department with headache. He states he has a headache whenever he bends forward or sneezes. Endorses headaches that worsened with position but not presently having any headache. No vision changes, nausea, vomiting. States he had some slight congestion but denies any congestion presently or any other symptoms such as fever, chills, neck pain or stiffness. No traumatic injuries. He notices most often when he bends over to pick something upper type issue he gets the headache on the right- sided posterior occipital region going down his neck. Was otherwise in his normal state of health. Symptoms going on for a week. Patient presently has no headache, otherwise well-appearing with normal vital signs here without any tachycardia, fever, hypoxia or significant blood pressure elevations. Normal neurological assessment. Symptoms consistent with musculoskeletal tension type headache especially with bending forward. Low suspicion intracranial pathology or cervical pathology. Low suspicion Chiari malformation given no neurological deficits. CT of the head obtained that was unremarkable. Safe for discharge home with PCP follow-up instructions and return precautions. Medical Records Attestation: I reviewed the patient's medical records. Imaging Data Attestation: I personally reviewed and interpreted this imaging study as follows: My impression: No acute abnormality. Discharge Plan Discharge Clinical Impression: Acute tension-type headache Patient Disposition: Home Condition: Stable Instructions: Antibiotic Form, Tension Headache (ED) Additional Instructions: CT scan shows no abnormalities such as bleeding, stroke, masses or herniation. No unremarkable bony structures. Symptoms consistent with tension-type headache which happens with muscle pulling in the neck when bending forward. Follow-up with your regular primary doctor. Return with any emergent concerns or new symptoms. Would recommend Tylenol and ibuprofen for pain control. Patient Language: Bulgarian Prescriptions: No Action pantoprazole [Protonix] 40 mg tablet,delayed release (DR/EC) 40 mg PO HS 28 Days Qty: 28 0RF Follow-up/Referrals: PHYSICIAN,PATTERN MAKER PROGRAMER [Primary Care Provider, Internal Medicine] Time of Disposition: 02:31
[2025-03-30 02:40] VITALS: BP 110/63; PULSE 75; RESP 22; O2SAT 98
== END 2025-03-30 02:40 | disposition home or self-care (01) ==
PROVIDERS: Emergency Provider Student in an Organized Health Care Education/Training Program
DX: G44.209 Tension-type headache, unspecified, not intractable (principal)
CPT/HCPCS: 70450; 99284